=== PATIENT | male | born 1935 | race Caucasian/White ===

== ENCOUNTER 2017-11-14 21:44 | Inpatient (IN) | payer OTHER ==
[~2017-11-14] VITALS: Ht 182.9 cm; Wt 138.3 kg
[2017-11-14 22:07] LABS: URINE BLOOD NEGATIVE (Negative); URINE CLARITY CLEAR; URINE COLOR YELLOW; URINE GLUCOSE-RANDOM NEGATIVE (Negative); URINE KETONES TRACE (Negative); URINE LEUKOCYTES-REFLEX NEGATIVE (Negative); URINE NITRITE-REFLEX NEGATIVE (Negative); URINE PROTEIN 1+ (Negative)
[2017-11-14 22:14] LABS: HEMATOCRIT 38.1 % (42.0-52.0); MCH 32.7 pg (26.0-34.0); MCHC 31.4 g/dL (28.0-37.0); MPV 9.6 fl. (7.2-11.1); NUCLEATED RBCS 0 /100WBC; PLATELET COUNT* 189 thou/uL (150-400); RBC 3.67 mil/uL (4.50-6.00); RDW-CV 17.5 % (10.5-14.5)
[2017-11-14 22:25] LABS: INR 1.5; PROTIME 14.7 Seconds (9.20-11.50)
[2017-11-14 22:25] LABS: ICTOTEST (BILI CONFIRMATORY) Negative (Negative); URINE BILIRUBIN 1+ (Negative)
[2017-11-14 22:32] LABS: CALCIUM 9.3 mg/dL (8.5-10.1); POTASSIUM 5.3 mmol/L (3.5-5.1)
[2017-11-14 22:33] LABS: ALBUMIN 2.7 g/dL (3.4-5.0); MAGNESIUM 1.9 mg/dL (1.8-2.4); TOTAL BILIRUBIN 1.7 mg/dL (<0.1-1.0); TOTAL PROTEIN 6.8 g/dL (6.4-8.2); TROPONIN-I LEVEL 0.57 ng/mL (<0.06)
[2017-11-14 22:36] LABS: BE -1.4 mmol/L (-2 to +3); HCO3 21.3 mmol/L (22.0-26.0); PCO2 30.2 mmHg (35.0-45.0); pH 7.467 (7.340-7.450)
[2017-11-14 22:38] LABS: PO2 256.5 mmHg (75.0-100.0)
--- NOTE | 2017-11-14 23:16 | NUR ---
BACK FROM CAT SCAN.
[2017-11-15] VITALS (20 sets, daily range): BP systolic 77–137; BP diastolic 44–85
--- NOTE | 2017-11-15 00:05 | NUR ---
PT INTUBATED PER DR WELSH, 8 FR. 25 AT THE LIP. VENT SEETINGS 600/14/100% PEEP 5.
--- NOTE | 2017-11-15 00:12 | NUR ---
CENTRAL LINE PLACED BY DR WELSH. RT EJ.
[2017-11-15 00:49] LABS: ABSOLUTE LYMPHOCYTES 0.4 thou/uL (0.8-5.3); ABSOLUTE MONOCYTES 0.7 thou/uL (0.0-1.2); ABSOLUTE NEUTROPHILS 9.9 thou/uL (1.6-8.1)
[2017-11-15 00:50] LABS: ANISOCYTOSIS 1+; PLATELET ESTIMATE ADEQUATE; POLYCHROMASIA 1+
[2017-11-15 01:36] LABS: BE -3.2 mmol/L (-2 to +3); HCO3 21.9 mmol/L (22.0-26.0); PCO2 39.5 mmHg (35.0-45.0); pH 7.362 (7.340-7.450)
[2017-11-15 01:38] LABS: PO2 344.5 mmHg (75.0-100.0)
--- NOTE | 2017-11-15 03:10 | NUR ---
PT ADMITED TO ICU ROOM 5 AT 0100. PT INTUBATED AND SEDATED ON VENTILATOR. PT IN BILATERAL SOFT WRIST RESTRAINTS TO MAINTAIN ET TUBE, CENTRAL LINE, OG TUBE AND MCQUEEN CATHETER. PT SEDATED ON PROPOFOL DIP FOR SEDATION. PT RECIEVING AMIODARONE DRIP FOR TREATMENT OF AFIB/RVR.
[2017-11-15 08:59] LABS: BE -2.9 mmol/L (-2 to +3); PCO2 33.8 mmHg (35.0-45.0); PO2 97.1 mmHg (75.0-100.0); pH 7.411 (7.340-7.450)
[2017-11-15 10:59] LABS: INFLUENZA A ANTIGEN None Detected (None Detect); INFLUENZA B ANTIGEN None Detected (None Detect)
--- NOTE | 2017-11-15 11:49 | EKG ---
[place] [address] ELECTROCARDIOGRAM REPORT Name: DAKSHA MUNIZ Room: [address] ADM IN ..#: [id number] Admission: 11/14/17 Attend Phys: Narcisa Pastrana Discharge: Date of : 34 Report #: [id number] THIS REPORT FOR: //name// [facility] ED Test Date: 2017-11-14 Test Time: 21:52:52 Pat Name: DAKSHA FLAVIO Department: Room: [facility] Gender: M Research And Development Technician: WILVER Cordova : 1935 Requested By: Phyllis Carty Order Number: [id number] MD: Markel Black Measurements Intervals [place] Rate: 167 P: IN: QRS: 67 QRSD: 106 T: 88 QT: 286 QTc: 477 Interpretive Statements Atrial fibrillation with rapid V-rate Anterior infarct, old Nonspecific T abnormalities, lateral leads No previous ECG available for comparison Electronically Signed On 11-15-2017 11:48:56 BRAKE LINING DRILLER by Markel Black [email or web address] <ELECTRONICALLY SIGNED> By: Markel Black MD, [facility] 11/15/17 1148 51 51 Markel Black MD, [facility] /EPI
--- NOTE | 2017-11-15 11:52 | EKG ---
[place] [address] ELECTROCARDIOGRAM REPORT Name: DAKSHA MUNIZ Room: [address] ADM IN [facility].#: [id number] Admission: 11/14/17 Attend Phys: Narcisa Pastrana Discharge: Date of : 34 Report #: [id number] THIS REPORT FOR: //name// [facility] ED Test Date: 2017-11-15 Test Time: 00:47:08 Pat Name: DAKSHA FLAVIO Department: Room: [facility] Gender: M Print Color Operator: UNKNOWN : 1935 Requested By: Phyllis Carty Order Number: [id number] MD: Markel Black Measurements Intervals [place] Rate: 132 P: SD: QRS: 92 QRSD: 105 T: 30 QT: 307 QTc: 455 Interpretive Statements Incomplete analysis due to missing data in precordial lead(s) Atrial fibrillation with rapid V-rate Anterior infarct, old Missing lead(s): V6 Electronically Signed On 11-15-2017 11:52:05 TABLEAU DEVELOPER by Markel Black [email or web address] <ELECTRONICALLY SIGNED> By: Markel Black MD, [facility] 11/15/17 1152 0047 0047 Markel Black MD, [facility] /EPI
--- NOTE | 2017-11-15 15:30 | 2DMMODE ---
[place] [address] 2 D/M-MODE ECHOCARDIOGRAM Name: DAKSHA MUNIZ Room: [address] IN [facility]#: [id number] Admission: 11/14/17 Attend Phys: Pradip Lantigua Discharge: Date of : 33 Date of Service: 11/15/17 1530 Report #: [id number] THIS REPORT FOR: //name// APPROVED REPORT Study performed: 11/15/2017 09:21:01 EXAM: Comprehensive 2D, Doppler, and color-flow Echocardiogram Patient Location: In-Patient Room #: [facility] Status: routine BSA: 2.59 HR: 82 bpm BP: 106/60 mmHg Rhythm: Atrial Fibrillation Other Information Study Quality: Good Indications Atrial Fibrillation Sepsis elevated BNP, Altered mental status, cellulitis 2D Dimensions IVSd: 12.62 (7-11mm) LVOT Diam: 22.61 (18-24mm) LVDd: 64.17 mm PWd: 11.07 (7-11mm) Ascending Ao: 51.03 (22-36mm) LVDs: 51.45 (25-40mm) Aortic Root: 37.10 mm Volumes Left Atrial Volume (Systole) LA ESV Index: 48.80 mL/m2 Aortic Valve AoV Peak Rocky.: 1.71 m/s AO Peak Gr.: 11.71 mmHg LVOT Max P.52 mmHg AO Mean Gr.: 7.03 mmHg LVOT Mean P.36 mmHg LVOT Max V: 1.06 m/s AO V2 VTI: 33.86 cm LVOT Mean V: 0.71 m/s JOHNATHON (VTI): 2.29 cm2 LVOT V1 VTI: 19.29 cm AI [place]: 1.46 m/s2 AI PHT: 659.62 [place] [address] 2 D/M-MODE ECHOCARDIOGRAM Name: DAKSHA MUNIZ Room: [address] IN ..#: [id number] Admission: 11/14/17 Attend Phys: Pradip Lantigua Discharge: Date of : 34 Date of Service: 11/15/17 1530 Report #: [id number] Mitral Valve MV Decel. Time: 149.31 ms MV PHT: 43.30 ms MVA (PHT): 5.08 cm2 TDI Medial E' Rocky.: 0.10 m/s Lateral E' Rocky.: 0.16 m/s Pulmonary Valve PV Peak Rocky.: 0.68 m/s PV Peak Gr.: 1.87 mmHg Tricuspid Valve TR Peak Gr.: 28.92 mmHg RVSP: 33.00 mmHg Left Ventricle Left ventricle is mildly dilated. There is global hypokinesis of the left ventricle. Mild concentric left ventricular hypertrophy. Left ventricular systolic function is severely decreased. LVEF is 25-30%. This study is not technically sufficient to allow evaluation of the LV diastolic function due to atrial fibrillation. Right Ventricle Right ventricle is mildly dilated. Right ventricle is mildly hypokinetic. Atria Left atrium is severely dilated. Right atrium is moderately dilated. Aortic Valve Mild aortic valve sclerosis. Mild aortic regurgitation. There is no aortic valvular stenosis. Mitral Valve The mitral valve is normal in structure. Moderate mitral regurgitation. No evidence of mitral valve stenosis. Tricuspid Valve The tricuspid valve is normal in structure. Moderate tricuspid regurgitation. The RVSP is 30-35 mmHg. Pulmonic Valve The pulmonary valve is normal in structure. [place] [address] 2 D/M-MODE ECHOCARDIOGRAM Name: DAKSHA MUNIZ Room: [address] IN [facility]#: [id number] Admission: 11/14/17 Attend Phys: Pradip Lantigua Discharge: Date of : 33 Date of Service: 11/15/17 1530 Report #: [id number] [place] Aortic root is moderately dilated. IVC is normal in size and collapses with >50% inspiration Pericardium There is no pericardial effusion. Left pleural effusion. <Conclusion> LVEF is 25-30%. Right ventricle is mildly dilated. Left atrium is severely dilated. Right atrium is moderately dilated. Mild aortic valve sclerosis. Mild aortic regurgitation. Moderate mitral regurgitation. <ELECTRONICALLY SIGNED> By: Markel Black MD, FACC 11/15/17 1530 153 153 Markel Black MD, FACC /INF
--- NOTE | 2017-11-15 16:18 | NUR ---
WOUND CARE NOTE: CONSULT RECEIVED FOR CELLULITIS. PATIENT PRESENTS WITH 4+ PITTING EDEMA TO BILATERAL LEGS, REDNESS PRESENT TO LOWER ASPECT OF LEGS. ECCHYMOSIS NOTED TO LEFT KNEE AREA. WARM TO TOUCH. DID NOT OBSERVE ANY BLISTERING. WEEPING WAS NOTED FROM PINPOINT AREA TO RIGHT LEG. UNABLE TO PALPATE PULSES DUE TO THE EDEMA, PATIENT'S RN STATES SHE WAS ABLE TO DOPPLE THEM EARLIER. PATIENT WITH SKIN SLIT TO COCCYX-UNABLE TO MEASURE AT THIS TIME. APPEARED TO BE PARTIAL THICKNESS AND FROM MOISTURE. APPEARS TO HAVE FUNGAL RASH UNDER ABDOMINAL FOLD AND BILATERAL GROIN. RECOMMEND ELEVATE BL LEGS ELEVATE HEELS OFF BED BARRIER OINTMENT BID AND PRN INCONTINENCE TURN Q2 HOURS KEEP OFF WOUND PLACE LOTION TO BILATERAL LEGS, APPLIED OPTIFOAM OR ABD OVER WEEPING AREAS, KERLIX AND MACARIO FROM TOES TO KNEE. RECOMMEND PERFORMING DAILY IF OK WITH PHYSICIANS LIMIT HOB <30 DEGREES IF PATIENT CAN TOLERATE WASH ABDOMINAL FOLDS AND GROIN AREA, WHERE FUNGAL INFECTION PRESENT, WELL WITH SOAP AND WATER THEN DRY WELL. PRIOR TO APPLYING NYSTATIN POWDER.
[2017-11-16] VITALS (17 sets, daily range): BP systolic 18–152; BP diastolic 33–85
[2017-11-16 04:05] LABS: ABSOLUTE LYMPHOCYTES 0.5 thou/uL (0.8-5.3); ABSOLUTE NEUTROPHILS 10.1 thou/uL (1.6-8.1); BASOPHILS 0.2 %; EOSINOPHILS 0.1 %; HEMATOCRIT 32.8 % (42.0-52.0); HEMOGLOBIN 10.6 gm/dL (14.0-18.0); LYMPHOCYTES 4.6 %; MCH 32.8 pg (26.0-34.0); MCHC 32.3 g/dL (28.0-37.0); MCV 101.4 fL (80.0-100.0); MONOCYTES 8.7 %; MPV 10.2 fl. (7.2-11.1); NUCLEATED RBCS 0 /100WBC; PLATELET COUNT* 133 thou/uL (150-400); POLYS 86.4 %; RBC 3.24 mil/uL (4.50-6.00); RDW-CV 17.3 % (10.5-14.5); WBC 11.7 thou/uL (4.0-11.0)
[2017-11-16 04:20] LABS: BE -4.3 mmol/L (-2 to +3); PCO2 33.5 mmHg (35.0-45.0); PO2 100.4 mmHg (75.0-100.0); pH 7.393 (7.340-7.450)
[2017-11-16 04:22] LABS: ANION GAP 9 mmol/L (7-16); BUN 44 mg/dL (7-18); CALCIUM 8.7 mg/dL (8.5-10.1); CHLORIDE 103 mmol/L (98-107); CHOLESTEROL 64 mg/dL (<200); CO2 25 mmol/L (21-32); CREATININE 2.5 mg/dL (0.6-1.3); GLUCOSE 110 mg/dL (70-99); HDL CHOLESTEROL 10 mg/dL (>40); LDL CHOLESTEROL 28 mg/dL (<100); POTASSIUM 4.6 mmol/L (3.5-5.1); SODIUM 137 mmol/L (136-145); TC:HDL 6.4 Ratio (Not establshd); TRIGLYCERIDE 133 mg/dL (<150); VLDL 27 mg/dL (<40)
[2017-11-16 04:45] LABS: SERUM ASSESSMENT CLEAR
[2017-11-16 06:52] LABS: DIRECT BILIRUBIN 0.5 mg/dL (<0.1-0.3); TOTAL BILIRUBIN 0.8 mg/dL (<0.1-1.0); TOTAL PROTEIN 5.4 g/dL (6.4-8.2)
--- NOTE | 2017-11-16 09:45 | NUR ---
RECEIVED PT FROM NIGHT RN. ASSESSMENT CHARTED. AFEBRILE. TTT TODAY. SEDATION VACATION RIGHT NOW. WILL CONTINUE TO MONITOR.
[2017-11-16 10:47] LABS: APTT 32.4 Seconds (25.0-31.3); INR 1.3; PROTIME 12.5 Seconds (9.20-11.50)
--- NOTE | 2017-11-16 10:50 | CON ---
[address] [address] CONSULTATION Name: DAKSHA MUNIZ Room: [address] IN .R.#: [id number] Admission: 11/14/17 Attend Phys: Narcisa Pastrana Discharge: Date of : 34 Report #: [id number] THIS REPORT FOR: //name// CC: Gutierrez Lantigua DATE OF SERVICE: 11/15/2017 INFECTIOUS DISEASE CONSULTATION ATTENDING PHYSICIAN: Dr. Lantigua. REASON FOR CONSULTATION: Sepsis, right lower extremity inflammatory eruption, likely component of skin and soft tissue infection. HISTORY OF PRESENT ILLNESS: Chart reviewed, the patient examined. This is an 81-year-old without significant medical history, who apparently was found by a family member with marked encephalopathy, who had seen him the day prior. It was clear that he was febrile as well. He noted per the family member that he had a raised area on the right thigh from a dog bite previously. He was found to be somewhat hemodynamically unstable. Ultimately, he was intubated. He has been treated in the ICU. He is not on pressor support. He was found to have lactic acidemia as well. He was dosed with vancomycin as well ceftriaxone. ALLERGIES: LISTED TO PENICILLINS AND ERYTHROMYCIN. CURRENT MEDICATIONS: Include pantoprazole, aspirin, acetaminophen, propofol, ipratropium and albuterol inhaler. PAST MEDICAL HISTORY: Glaucoma, hypertension, anxiety, depression and previous herniated disk. SOCIAL HISTORY: Nonsmoker, no ethanol. FAMILY HISTORY: Noncontributory. REVIEW OF SYSTEMS: Unobtainable. PHYSICAL EXAMINATION: GENERAL: He is minimally responsive at this point. He is in supine position. He is intubated via an endotracheal tube and mechanical ventilatory support. He does open his eyes, though it is not clear that he is tracking. He appears somewhat chronically ill in this acute setting. VITAL SIGNS: Temperature 97.8, pulse 71, respirations 13 and blood pressure 105/59. SKIN: [place] [address] CONSULTATION Name: DAKSHA MUNIZ Room: [address]#: [id number] Admission: 11/14/17 Attend Phys: Narcisa Pastrana Discharge: Date of : 34 Report #: [id number] NECK: Supple. LUNGS: Few scattered coarse breath sounds. HEART: Regular. I do not appreciate a murmur. ABDOMEN: Soft. There are no apparent peritoneal signs. No rigidity. GENITOURINARY: Deferred. RECTAL: Deferred. LABORATORY DATA: Ultrasound noted cholelithiasis with possible cholecystitis. Venous Dopplers show no evidence of DVT. Influenza antigen was negative. Chest x-ray notes some bilateral infiltrates. ABG: A pH of 7.411, pCO2 of 33.8 and pO2 of 97.1 on FiO2 of 35%. Blood cultures are sterile thus far. Lactic acid initially was 3.4, followup was 2.5. Troponin of 2.144. Urinalysis unremarkable. Electrolytes: Sodium 135, potassium 5.3, chloride 101, bicarbonate is 26, anion gap of 8, BUN and creatinine 34 and 2.0 and estimated GFR of 32. LFTs: ALT of 83, AST of 213, total bilirubin of 1.7. ASSESSMENT AND PLAN: Febrile illness with parameters that raise a question of sepsis, though he is not hypotensive, did respond to fluids. We will continue empiric antimicrobial therapy. Await culture results. Certainly may well have cholecystitis. Continue efforts to wean off support, although he remains quite tenuous at this point. <ELECTRONICALLY SIGNED> By: Kartik Joy MD 11/16/17 1050 1440 [id number] Joy MD /nt
--- NOTE | 2017-11-16 11:08 | CON ---
[address] [address] CONSULTATION Name: DAKSHA MUNIZ Room: [address] IN M.R.#: [id number] Admission: 11/14/17 Attend Phys: Narcisa Pastrana Discharge: Date of : 34 Report #: [id number] THIS REPORT FOR: //name// CC: Gutierrez Lantigua REQUESTING PHYSICIAN: Pradip Lantigua DO REASON FOR CONSULTATION: Acute respiratory failure, sepsis. DISCUSSION: The patient is an 81-year-old man who was brought to the Emergency Department yesterday evening. He apparently lives alone, recently lost his , was seen in the Emergency Department late yesterday evening due to alterations in his mental status. Apparently, the family had noted a change. He had had some falls, was confused and also combative, was seen in the Emergency Department though was oxygenating adequately, was noted to have marked edema and erythema of his lower extremities. Was concerned about cellulitis. He has had issues with AFib with RVR. He was intubated in the Emergency Department. A central line was also placed. A chest x-ray done as well as imaging studies of his head to rule out an acute process. He was in the Intensive Care Unit. He has been oxygenating adequately. Blood pressure has been somewhat marginal, but he has not required any pressors. He is unable to provide any history. Currently, there is no family here. It appears he is a nonsmoker. He has had a temperature up to 103.1 last evening. He initially was extremely tachycardic. With his atrial fib, his rate is now controlled. Systolic pressure has been running around 100 this morning. He is on the ventilator, but the FiO2 has been decreased to around 40% and his O2 saturations had been good. He has had over 4 liters of fluid in. Just 375 mL of urine overnight. Antibiotics were administered in the ED. He apparently has a history of hypertension, prior herniorrhaphy x 2, some type of heart surgery when he was a child, herniated disk repair, rotator cuff surgery. I do note in 2006, he was hospitalized with cellulitis of his lower extremities at that time as well. Also, history of morbid obesity. ALLERGIES: Listed as ERYTHROMYCIN and PENICILLINS. At this time, it is not clear what home medications he was taking or how compliant he was with the regimen. FAMILY HISTORY: Per old records. Family history is positive for emphysema. REVIEW OF SYSTEMS: Unable to [place] [address] CONSULTATION Name: DAKSHA MUNIZ Narcisa Room: [address]#: [id number] Admission: 11/14/17 Attend Phys: Narcisa Pastrana Discharge: Date of : 34 Report #: [id number] SOCIAL HISTORY: Reportedly he is a recent . Retired from . Nonsmoker. REVIEW OF SYSTEMS: Unable to obtain from the patient given his condition. PHYSICAL EXAMINATION: GENERAL APPEARANCE: Morbidly obese man. He is sedated with IV propofol going, is intubated, has an oral gastric tube in place. He is a very large man. VITAL SIGNS: Heart rate is in the 80s. His systolic pressure is just over 100. SpO2 is 100% on 40% oxygen on the ventilator. HEENT: Head is normocephalic. Sclerae are nonicteric. Mucous membranes do look dry. Currently he is sedated, will do some withdrawal to noxious stimuli. NECK: Very large. He does have a central line in place. Cannot appreciate any definite JVD. HEART: Tones are distant. Irregularly irregular. RESPIRATORY: Lung sounds, however, are quite distant given his large body habitus. No subcutaneous emphysema is noted. ABDOMEN: Very obese. No definite hepatosplenomegaly is appreciated. He does have marked erythema and irritation noted throughout the inguinal areas in his perineal area. EXTREMITIES: Lower extremities are markedly edematous and reddened. The change is consistent with stasis dermatitis. No clubbing. LABORATORY AND X-RAY FINDINGS: Chest x-ray was reviewed. Assumed done late last night. Endotracheal tube in position as well as central line. Does have some mild prominence of markings, all consistent with congestive heart failure. Has some mild cardiomegaly. No pneumothorax. Venous Dopplers are pending. Venous Dopplers done here in the past were negative for DVT. Blood cultures are pending. Arterial blood gases done this morning on the ventilator, pH 7.41, a pCO2 of 34, pO2 of 97, bicarbonate at 21 with a saturation of 97%. His chemistry last night, BUN is 34, creatinine of 2.0, potassium 5.3. AST elevated at 213, lipase 71, total bilirubin 1.7, alkaline phosphatase 97. Albumin 2.7. Lactic acid peaked at 3.4, now down to 2.5. Troponin elevated at 3.52. ProBNP 29,347. Coag studies revealed an INR of 1.5. White blood cell count 11,000, hemoglobin 12.0, hematocrit 38.1, platelets 189,000. MCV is 104. Influenza screen is pending. Prealbumin is 10.5. UA did show trace ketones. IMPRESSION: 1. Acute respiratory failure, was intubated primarily due to his altered mental status and to protect his airway. 2. Acute kidney injury, probably superimposed on chronic kidney disease. 3. Cellulitis. 4. Mild metabolic acidosis. 5. Mild leukocytosis. 6. Morbid obesity. 7. Elevated troponin and BNP. May have had non-ST elevation myocardial [facility] [address] [place] [address] CONSULTATION Name: DAKSHA MUNIZ Room: [address] IN [facility].#: [id number] Admission: 11/14/17 Attend Phys: Narcisa Pastrana Discharge: Date of : 34 Report #: [id number] infarction versus stress. 8. Atrial fibrillation, ventricular response, now controlled. 9. Probably candidiasis. 10. Overall prognosis appears guarded. RECOMMENDATIONS: 1. Maintain ventilatory support at this time. Would like him hemodynamically stable, more alert and hopefully can wean on extubating. 2. Agree with Renal seeing. They are here, they are adjusting his fluids, also going to try Lasix. 2. Will need echocardiogram. Cardiology will also be evaluating. 3. Agree with the wound care seeing him. By history, it appears his legs have been an ongoing issue. 4. I questioned how compliant he is at home. He has lost spouse recently, may not be adequately caring for himself. 5. May need to address code status. <ELECTRONICALLY SIGNED> By: Yann Smith MD 11/16/17 1108 1047 Armando Fuller MD /mason
--- NOTE | 2017-11-16 11:17 | CON ---
[facility] [address] [place] [address] CONSULTATION Name: DAKSHA MUNIZ Room: [address] IN .R.#: [id number] Admission: 11/14/17 Attend Phys: Narcisa Pastrana Discharge: Date of : 34 Report #: [id number] THIS REPORT FOR: //name// CC: Gutierrez Lantigua DATE OF SERVICE: 11/15/2017 HISTORY OF PRESENT ILLNESS: This is an 81-year-old male patient who is unable to provide any history at all. This patient apparently is admitted with altered mental status. No family member is available. I reviewed the record, it looks like the patient lives by himself and he has this recent onset of altered mental status. At one time, he was combative. He appeared to have multiple problems going on with him. REVIEW OF SYSTEMS: Positive for atrial fibrillation with runs of V-tach. He has a pretty significant cellulitis in the lower extremities. He is getting an ultrasound done there. He appeared to be in renal failure. His 14-point review of system was carried out. He has fallen down recently, it is not clear why he has fallen down. This is all the 14-point review of systems I can get. He was having temperature when he came in. He has a history of hypertension. PAST MEDICAL HISTORY: Unavailable, but the best I can tell he did not have a shock in the past. FAMILY HISTORY: Positive for emphysema. SOCIAL HISTORY: He lives alone. PHYSICAL EXAMINATION: Very limited. On my examination, he did not respond at all to the painful stimuli or verbal stimuli. His pupil is asymmetrical, but I suspect that is his baseline. He has no response or reflexes anywhere. He is intubated and is on vent. He has a pretty significant edema in the lower extremities and discoloration. It is not possible to tell about his pulses. His cardiac examination has shown atrial fibrillation. His blood pressure is 106/61, respirations 16, pulse is 82, temperature is 97.9. LABORATORY DATA: White count is normal at 11. We did have a CT scan on admission that did not show any acute changes. IMPRESSION: Very difficult to form in this patient. I need to reach the family and we need some more testing before we can establish the diagnosis. I suspect most likely he has encephalopathy secondary to systemic problem. I cannot rule out the possibility of central nervous system infection. He has numerous medical issues making [place] [address] CONSULTATION Name: DAKSHA MUNIZ Room: [address]#: [id number] Admission: 11/14/17 Attend Phys: Narcisa Pastrana Discharge: Date of : 34 Report #: [id number] RECOMMENDATIONS: 1. We will get an EEG done. 2. We will try to reach the family. 3. He has numerous medical problems and they need to decide how aggressive they want to be. 4. I will reevaluate him tomorrow after the EEG is done and maybe we have to do an MRI on him, which is going to be difficult with his condition. We will try to reach the family and discuss with them. this portion is being admitted at the time of signing this dictation. I was not able to get hold of the patient's son but I talked to the patient's sons significant other and she provided history. This patient was functional total few days ago. He needed help. He is not sure how long his legs or having these problems. Although family indicates that he was functional prior to this illness but from all indication it would appear that he was only marginally functional even that time. I had talked to her about the options and she wanted me to talk to this patient's son and I did that this morning and that note will be dictated. I had a long discussion with her yesterday and another one with her son today Thank you very much for this referral. <ELECTRONICALLY SIGNED> By: Vinayak Resendez MD 11/16/17 1117 1237 57Vinayak Resendez MD /mason
--- NOTE | 2017-11-16 13:52 | EKG ---
[place] [address] ELECTROCARDIOGRAM REPORT Name: DAKSHA MUNIZ Room: [address] ADM IN M.R.#: [id number] Admission: 11/14/17 Attend Phys: Narcisa Pastrana Discharge: Date of : 34 Report #: [id number] THIS REPORT FOR: //name// [facility] Test Date: 2017-11-16 Test Time: 08:11:17 Pat Name: DAKSHA MUNIZ Department: Room: [address] Gender: M Rose Grower: : 1935 Requested By: Markel Black Order Number: [id number] MD: James George Measurements Intervals [place] Rate: 89 P: [place]: QRS: 58 QRSD: 108 T: 93 QT: 402 QTc: 490 Interpretive Statements Atrial fibrillation Borderline low voltage, extremity leads Nonspecific T abnrm, anterolateral leads Borderline prolonged QT interval Compared to ECG 11/15/2017 00:47:08 Myocardial infarct finding no longer present Electronically Signed On 11-16-2017 13:52:06 HANDER IN by James George [email or web address] <ELECTRONICALLY SIGNED> By: James George MD, FAC 11/16/17 1352 0811 08 James George MD, [facility] /EPI
--- NOTE | 2017-11-16 15:02 | NUR ---
WOUND NURSE: PATIENT SEEN R/T PERIPHERAL EDEMA AND RECENT LEAKAGE IN BLE THROUGH THE SKIN. CURRENTLY LEGS AREA ELEVATED ON PILLOWS, NO COMPRESSION OR BANDAGES ARE IN PLACE AND THERE IS NO ACTIVE LEAKAGE NOTED AT THIS TIME. PATIENT IS EDEMATOUS IN ALL EXTREMITIES AND THERE IS CONCERN OVER USE OF COMPRESSION AT THIS TIME. RECOMMENDED CONTINUED ELEVATION OF BLE ON PILLOWS AT 15 DEGREE ANGLE AND HOLD KERLEX AND MACARIO WRAPS WITH DRESSINGS LONG NO ACTIVE DRAINAGE. LEGS ARE ALSO REDDENED AND WARM, BUT NOT HOT.
--- NOTE | 2017-11-16 16:00 | NUR ---
SPOKE WITH SON DAKSHA BY PHONE (CELL [phone]). PT LIVES ALONE, HIS ABOUT 5-6 MONTHS AGO. SON SAID THAT SOMEONE FROM THE FAMILY IS AT THE HOUSE DAILY CHECKING ON HIM, BRINGING HIM GROCERIES OR MEALS, ETC. THEY HAVE A FAMILY FRIEND WHO GOES BY TO HELP WITH COOKING, CLEANING, ETC. FAMILY SETS UP PTS MEDS, THEY TRIED USING A PILL CONTAINER BUT PT HAD TROUBLE OPENING THE CONTAINERS SO NOW THEY SET OUT SEVERAL DAYS OF MEDS IN SMALL TUPPERWARE CONTAINERS. SON SAID PT HAS BEEN TAKING ALL HIS MEDS CORRECTLY. THE FAMILY IS CONCERNED THAT PT MAY NOT BE SHOWERING, WHILE HE IS IN THE HOSPITAL THE [place] IS REDOING HIS SHOWER, PUTTING IN GRAB BARS, ETC SO IT WOULD BE SAFER FOR PT TO SHOWER. PT'S NAME IS ON A WAITING LIST FOR AN INDEP APT AT THE [facility]. PT HAS A SMALL DOG SO THEY ARE HAVING TO WAIT FOR A ROOM ON THE MAIN LEVEL. SON IS NOW WONDERING IF PT WOULD NEED ASSISTED LIVING, DISCUSSED ASSISTED LIVING OPTIONS IN THE AREA, WILL LEAVE A LIST OF FACILITIES IN THE ROOM. BRIEFLY DISCUSSED DISCHARGE OPTIONS INCLUDING HOME WITH HOME HEALTH VS SNF PRIOR TO RETURNING HOME. SON IS OPEN TO OPTIONS. CASE MGT WILL CONTINUE TO FOLLOW.
--- NOTE | 2017-11-16 16:38 | CON ---
[address] [address] CONSULTATION Name: DAKSHA MUNIZ Room: [address] IN .R.#: [id number] Admission: 11/14/17 Attend Phys: Narcisa Pastrana Discharge: Date of : 33 Report #: [id number] THIS REPORT FOR: //name// CC: Gutierrez Lantigua DATE OF SERVICE: 11/15/2017 TYPE OF REPORT: Cardiology consultation. HISTORY OF PRESENT ILLNESS: The patient is an 81-year-old white male who I was asked to see in the hospital today after he was noted to be in atrial fibrillation. The history is obtained from the current chart. There are no family members available. According to the chart, the patient brought to the emergency room yesterday here at [facility] last night by ambulance. Apparently, family members went to check on the patient yesterday evening and he was confused and combative. Apparently lives by himself. He apparently had fallen last week. He was evaluated in the Emergency Room. He was found to be in atrial fibrillation. His oxygen level was low. He has not had significant edema and erythema of the legs. Because of respiratory failure, he was intubated in the Emergency Room and a central line was placed. I was asked to see him for further evaluation and treatment. PAST MEDICAL HISTORY: Has a history of hypertension and previous hernia repair. Apparently, he had a heart surgery as a child. He has had back surgery, shoulder surgery and history of cellulitis. He is morbidly obese. He has a history of glaucoma. ALLERGIES: He has a previous intolerance to PENICILLIN. MEDICATIONS: It is unclear if he is on any medications at home. FAMILY HISTORY: Significant for COPD. SOCIAL HISTORY: He is apparently , apparently is a nonsmoker. REVIEW OF SYSTEMS: Cannot be obtained. PHYSICAL EXAMINATION: GENERAL: Revealed an obese elderly male lying in bed. He is on a ventilator. VITAL SIGNS: His blood pressure 100 systolic and pulse is 80 and irregular. HEENT: He was anicteric. Mucous members are moist. NECK: Veins are difficult to assess due to obesity. CHEST: Revealed clear lung bledsoe bilaterally. CARDIAC: Irregular rhythm. ABDOMEN: [place] [address] CONSULTATION Name: DAKSHA MUNIZ Room: [address] IN [facility]#: [id number] Admission: 11/14/17 Attend Phys: Narcisa Pastrana Discharge: Date of : 34 Report #: [id number] EXTREMITIES: Had pitting edema up to the knee. SKIN: Had erythema up to the knee of both anterior tibial areas. No dorsalis pedis pulse palpated. Skin was cool and dry. NEUROLOGICAL: He would withdraw from pain but not respond to voice RADIOLOGICAL DATA: His ECG on admission last night showed atrial fibrillation, rightward axis and nonspecific ST-T wave changes. His workup, he actually had a previous nuclear stress test here at [facility] in 2013, was ordered by Dr. Gutierrez Murillo and Dr. Renzo Moody. There is no evidence of ischemia. Ejection fraction was normal. X-rays, he had a chest x-ray on admission that showed pulmonary edema. CT scan of the head without contrast showed atrophy, microvascular changes and no acute infarction. Venous duplex scan of the legs showed no evidence of DVT. LABORATORY DATA: His lab work done in the Emergency Room: Sodium 135, BUN 34, creatinine 2.0 and glucose 117. SGOT 213. Bilirubin 1.7. Alkaline phosphatase is 97. SGPT 83. Albumin 2.7. His troponin on admission was 0.57 and today, it is 3.52. BNP 29,347. White blood cell count 11.0, hemoglobin 12.0 and MCV 104. IMPRESSION AND RECOMMENDATIONS: 1. Hze-JY-pqfzyqzhe myocardial infarction. I would not recommend cardiac catheterization at this time. I would consider giving the patient aspirin and heparin. The patient's blood pressure is too low for beta leah. I would recommend an echocardiogram. 2. Pulmonary edema. I would give Lasix and check echocardiogram. 3. Chronic kidney disease. 4. Morbid obesity. 5. Cellulitis. 6. Respiratory failure, the patient intubated. 7. Recent fall. 8. Atrial fibrillation. At this time, I would aim for rate control only. The patient does not appear to be a very good candidate for anticoagulation. <ELECTRONICALLY SIGNED> By: Markel Black MD, FACC 11/16/17 1638 [id number] [id number] Black MD, FACC /nt
[2017-11-16] MEDS ORDERED: XARELTO20 MG PO (19:20)
[2017-11-16] MEDS ORDERED: CELEXA10 MG PO (19:22)
[2017-11-16] MEDS ORDERED: LOPRESSOR25 PO (19:23)
--- NOTE | 2017-11-16 20:00 | NUR ---
ASSUMED CARE OF PATIENT. GOALS: KEEP SEDATION OFF AND MONITOR NEURO STATUS. TURN & ORAL CARE.
[2017-11-17] VITALS (16 sets, daily range): BP systolic 118–177; BP diastolic 45–88
[2017-11-17 05:40] LABS: ALBUMIN 1.9 g/dL (3.4-5.0); CALCIUM 8.6 mg/dL (8.5-10.1); CREATININE 2.3 mg/dL (0.6-1.3); PHOSPHORUS* 5.6 mg/dL (2.5-4.9); POTASSIUM 4.4 mmol/L (3.5-5.1)
--- NOTE | 2017-11-17 08:04 | NUR ---
some progression towards goals. moving all extremities. not following commands but opening eyes.
--- NOTE | 2017-11-17 10:15 | NUR ---
INTERDISICPLINARY ROUNDS: PT REMAINS ON VENT, TO START TF. OFF PRESSORS
--- NOTE | 2017-11-17 10:23 | EKG ---
[place] [address] ELECTROCARDIOGRAM REPORT Name: DAKSHA MUNIZ Room: [address] ADM IN .R.#: [id number] Admission: 11/14/17 Attend Phys: Narcisa Pastrana Discharge: Date of : 34 Report #: [id number] THIS REPORT FOR: //name// [facility] Test Date: 2017-11-17 Test Time: 08:05:13 Pat Name: DAKSHA MUNIZ Department: Room: [address] Gender: M Truck Dock Material Mover: : 1935 Requested By: Markel Black Order Number: [id number] MD: Markel Black Measurements Intervals Carver Rate: 80 P: LA: QRS: 69 QRSD: 111 T: 86 QT: 296 QTc: 342 Interpretive Statements Atrial fibrillation nonspecific t wave changes Ventricular premature complex Borderline low voltage, extremity leads Compared to ECG 11/16/2017 08:11:17 pvc no longer seen Electronically Signed On 11-17-2017 10:23:20 SPECIAL EDUCATION PROFESSIONAL by Markel Black [email or web address] <ELECTRONICALLY SIGNED> By: Markel Black MD, [facility] 11/17/17 1023 08 08 Markel Black MD, [facility] /EPI
--- NOTE | 2017-11-17 19:04 | NUR ---
PT NOT REALLY PROGRESSING TOWARDS GOALS. ASSESSMENTS CHARTED. AFEBRILE. SEDDATION OFF SINCE 0800 YESTERDAY. PT NOT REALLY WAKING UP. FAMILY UPDATED ON FAMILY OF CARE.
[2017-11-18] VITALS (23 sets, daily range): BP systolic 122–178; BP diastolic 53–88
[2017-11-18 03:36] LABS: HEMATOCRIT 34.7 % (42.0-52.0); HEMOGLOBIN 11.6 gm/dL (14.0-18.0); MCHC 33.4 g/dL (28.0-37.0); MCV 98.9 fL (80.0-100.0); MPV 9.7 fl. (7.2-11.1); NUCLEATED RBCS 0 /100WBC; PLATELET COUNT* 160 thou/uL (150-400); RBC 3.51 mil/uL (4.50-6.00); RDW-CV 16.7 % (10.5-14.5); WBC 8.8 thou/uL (4.0-11.0)
--- NOTE | 2017-11-18 03:52 | NUR ---
SPOKE TO BLU, PHARMACIST, REGARDING VANC TROUGH OF 21 YESTERDAY. PER PHARMACY, VANC DOSES TO BE GIVEN ORDERED AT THIS TIME. NEXT TROUGH TO BE DRAWN 11/18/17 @ 5145.
[2017-11-18 04:01] LABS: ALBUMIN 1.8 g/dL (3.4-5.0); CALCIUM 8.1 mg/dL (8.5-10.1); POTASSIUM 4.1 mmol/L (3.5-5.1); TOTAL BILIRUBIN 0.7 mg/dL (<0.1-1.0); TOTAL PROTEIN 5.4 g/dL (6.4-8.2)
[2017-11-18 04:02] LABS: ALBUMIN 1.8 g/dL (3.4-5.0); PHOSPHORUS* 4.9 mg/dL (2.5-4.9); POTASSIUM 4.1 mmol/L (3.5-5.1)
[2017-11-18 04:03] LABS: PREALBUMIN 9.3 mg/dL (18.0-35.7)
--- NOTE | 2017-11-18 06:40 | NUR ---
PT REMAINS STABLE ON VENTILATOR, O2 SAT HAS REMAINED >95%. VSS. PT HAS TOLERATED TUBE FEEDING WITH RESIDUALS NO >10ML, RATE INCREASED TO GOAL OF 40ML/HR. COMPLETE BED BATH GIVEN. YEASTY REDNESS NOTED IN GROIN, BENEATH PANUS, AND BENEATH BOTH BREASTS; NYSTATIN POWDER APPLIED. PT HAS BEEN TURNED Q2HR THROUGHOUT THE SHIFT. NO SEDATION GIVEN SINCE 11/16/17, PT IS RESTLESS IN BED AT TIMES BUT DOES NOT FOLLOW COMMAND.
[2017-11-18 06:45] LABS: ABSOLUTE LYMPHOCYTES 0.4 thou/uL (0.8-5.3); ABSOLUTE MONOCYTES 0.7 thou/uL (0.0-1.2); ABSOLUTE NEUTROPHILS 7.7 thou/uL (1.6-8.1); PLATELET ESTIMATE ADEQUATE
[2017-11-18 06:46] LABS: ANISOCYTOSIS 1+; POIKILOCYTOSIS 1+
--- NOTE | 2017-11-18 07:20 | NUR ---
ASSUMED CARE OF PAIENT AFTER RECEIVING BEDSIDE REPORT. ASSESSMENT COMPLETED, VSS. PATIENT TRACKING SOME WITH EYES AND MOVES LEFT FOOT AND RIGHT ARM TO COMMAND. VERY WEAK MOVEMENTS. LEFT ARM AND RIGHT LEG DO NOT MOVE TO COMMAND BUT RIGHT LEG DOES MOVE WITH NO PURPOSE. PATIENT VERY EDEMATOUS. PATIENT DOES NOT APPEAR TO BE IN ANY ACUTE PAIN. PATIENT WITH LOW GRADE FEVER. FILTERING MACHINE TENDER HELPER IN PLACE, AFIB RATE CONTROLLED NOTED. TOLERATING TUBE FEEDING AT THIS TIME. IV FLUIDS HELD PER PORTFOLIO ADMINISTRATOR BECAUSE OF INCREASED COARSE LUNG SOUNDS. BED ALARM ON. WILL CONTINUE TO MONITOR.
[2017-11-18 09:58] LABS: BE 1.6 mmol/L (-2 to +3); HCO3 25.9 mmol/L (22.0-26.0); PCO2 39.4 mmHg (35.0-45.0); PO2 121.8 mmHg (75.0-100.0); pH 7.435 (7.340-7.450)
--- NOTE | 2017-11-18 17:43 | NUR ---
PATIENT TOLERATED T-TUBE TRIAL TODAY WELL, FOLLOW UP ABG WNL. PATIENT EXTUBATED AND TOLERATED VERY WELL. PATIENT VERY WEAK, PT AND OT EVALUATION ORDERED. PATIENT DENIES PAIN, CONCERNS, OR COMPLAINTS. PATIENT DIURESED PER NEPHROLOGY. PATIENT RESTING COMFORTABLY IN BED. AFEBRILE. VSS. BEDSIDE REPORT TO BE GIVEN TO ONCOMING SHIFT.
--- NOTE | 2017-11-18 21:54 | NUR ---
PT ADMITTED TO ICU AT 2015 FOR SEPSIS, HYPOTENSION. PT'S AT BEDSIDE ASSISTING WITH CARE AT THAT TIME. PT DENIED PAIN OR DISCOMFORT. PT STATED HE FELT DIZZY TODAY AND HAD FALLEN AT HOME. PT HAS TRIPLE LUMEN CENTRAL LINE IN RIGHT GROIN WITH LEVOPHED INFUSING. FLU SWAB AND UA OBTAINED AND SENT TO LAB. CALL LIGHT IN REACH, PT USING APPROPRIATELY.
[2017-11-19] VITALS (12 sets, daily range): BP systolic 144–185; BP diastolic 58–76
[2017-11-19 03:40] LABS: HEMATOCRIT 31.7 % (42.0-52.0); HEMOGLOBIN 10.6 gm/dL (14.0-18.0); MCHC 33.4 g/dL (28.0-37.0); MCV 98.7 fL (80.0-100.0); RBC 3.22 mil/uL (4.50-6.00); RDW-CV 16.6 % (10.5-14.5); WBC 7.1 thou/uL (4.0-11.0)
[2017-11-19 04:02] LABS: ALBUMIN 2.9 g/dL (3.4-5.0); CALCIUM 8.5 mg/dL (8.5-10.1); CREATININE 1.7 mg/dL (0.6-1.3); MAGNESIUM 1.9 mg/dL (1.8-2.4); POTASSIUM 3.7 mmol/L (3.5-5.1); TOTAL PROTEIN 5.9 g/dL (6.4-8.2)
[2017-11-19 11:01] LABS: URINE BILIRUBIN NEGATIVE (Negative); URINE BLOOD 3+ (Negative); URINE CLARITY CLEAR; URINE COLOR YELLOW; URINE GLUCOSE-RANDOM NEGATIVE (Negative); URINE KETONES NEGATIVE (Negative); URINE LEUKOCYTES-REFLEX NEGATIVE (Negative); URINE NITRITE-REFLEX NEGATIVE (Negative); URINE PROTEIN TRACE (Negative); URINE UROBILINOGEN 0.2 E.U./dl (0.2-1.0)
[2017-11-19 11:21] LABS: MUCUS 0-3 Light strn/LPF (None Seen); SQUAMOUS 0-3 Few /LPF (0-3); URINE WBC-REFLEX 0-5 Rare /HPF (0-5)
[2017-11-19 11:22] LABS: CASTS None Seen /LPF (None Seen); CRYSTALS None Seen /LPF (None Seen)
--- NOTE | 2017-11-19 18:00 | NUR ---
PT PASSED NURSING BEDSIDE SWALLOW THIS MORNING AT 0800. ASSESSMENT CHARTED. PT TRANSFERED TO BED 214 VIA NURSING STAFF AT 1755. VSS THROUGHOUT THE DAY. PT TOLERATED REGULAR DIET WITHOUT DIFFICULTY TODAY. PT TOLERATING THIN LIQUIDS WITHOUT DIFFICULTY. MECHANICAL SOFT DIET ADDED PT DOES NOT HAVE HIS DENTURES HERE. NO OTHER COMPLAINTS.
--- NOTE | 2017-11-19 19:25 | NUR ---
PATIENT RESTING IN BED. VITAL SIGNS STABLE. PARTH WAS TRANSPORTED TO [facility] FROM ICU AT 18:00. PLACED ON TELEMTRY MONITOR, AFIB , RATE CONTROLED. HOURLY ROUNDING COMPLETED FOR PATIENT SAFETY.
[2017-11-20] VITALS (8 sets, daily range): BP systolic 158–186; BP diastolic 59–82
[2017-11-20 05:02] LABS: HEMATOCRIT 31.1 % (42.0-52.0); HEMOGLOBIN 10.4 gm/dL (14.0-18.0); MCH 33.1 pg (26.0-34.0); MCHC 33.3 g/dL (28.0-37.0); MCV 99.3 fL (80.0-100.0); MPV 9.5 fl. (7.2-11.1); RBC 3.13 mil/uL (4.50-6.00); RDW-CV 16.4 % (10.5-14.5); WBC 7.3 thou/uL (4.0-11.0)
[2017-11-20 05:15] LABS: CALCIUM 8.7 mg/dL (8.5-10.1); CREATININE 1.4 mg/dL (0.6-1.3); MAGNESIUM 1.8 mg/dL (1.8-2.4); POTASSIUM 3.5 mmol/L (3.5-5.1)
--- NOTE | 2017-11-20 05:34 | NUR ---
PT CARE ASSUMED AFTER REPORT. ASSESSMENT COMPLETE. AFIB ON MONITOR. DENIES PAIN. PT CONFUSED AND HALLUCINATING OVERNIGHT. PT FAMILY BROUGHT IN PT GLASSES AND DENTURES. RIJ FLUSHES WELL X2 PORTS. WHITE PORT FLUSHES SLUGGISH AND DOES NOT DRAW BLOOD. MCQUEEN TO DD WITH TEA COLORED URINE. FECAL BAG IN PLACE. O2 2L NC. 3+ GENERALIZED EDEMA. FALL PRECAUTIONS IN PLACE INCLUDING BED ALARM. CALL LIGHT IN REACH. BED IN LOWEST POSITION. SLOW TO PROGRESS TOWARDS GOALS.
--- NOTE | 2017-11-20 14:50 | NUR ---
Left VM for Pt's son to discuss disposition. Per Pt's nurse, Pt is A&Ox1-2. Waiting call back
--- NOTE | 2017-11-20 18:50 | NUR ---
REPORT RECEIVED FROM Alyce VILLANUEVA RN. PATIENT TRANSFERRED FROM TELEMETRY. PATIENT'S CARDIAC MONITORING RESUMED, TRACING AFIB. IV SALINE LOCKED. PATIENT SETTLED INTO ROOM. REPORT GIVEN TO ONCOMING RN. WILL CONTINUE WITH PLAN OF CARE.
--- NOTE | 2017-11-20 18:54 | NUR ---
PATINET RESTING IN BED. FECAL TUBE DISCONTINUED TODAY PER ORDERS, WELL TOLERATED BY PATIENT. VITAL SIGNS STABLE. REPORT CALLED TO MED SURG UNIT. PATINET TO BE MED/TELE. PATINET TAKEN VIA BED TO 3RD FLOOR BY STAFF.
[2017-11-21 04:00] VITALS: BP 161/63
--- NOTE | 2017-11-21 04:54 | NUR ---
THIS NURSE ASSUMES CARE OF PT 11/20/17 AT 1930, PT IS ALERT ORIENTED TO SELF, PLACE, AND SITUATION, PTS SON VISITS AT BEDSIDE, PT DENIES PAIN, CONTINUES ON IV ABX WITH NO ADVERSE REACTION, PT HAS 4+ PITTING EDEMA BLE, ANKLES AND FEET, PT HAS 3-4 + GENERALIZED EDEMA ELSEWHERE, LEFT UPPER EXTREMITY CONTINUES EDAMATOUS WITH BRUISING, PT RECEIVES BED BATH THIS SHIFT, RESTS QUIETLY IN BED WITH TURNING EVERY 2 HOURS THROUGHOUT THE NIGHT, PT VOICES NO COMPLAINS/CONCERNS THIS SHIFT, PTS SON DOES MENTION THAT HE WOULD LIKE TO SPEAK WITH ID PHYSICIAN VIA TELEPHONE TODAY, THIS NURSE TO LEAVE NOTE FOR PHYSICIAN AND NOTIFY DAYSHIFT NURSE
[2017-11-21 04:57] LABS: ABSOLUTE EOSINOPHILS 0.1 thou/uL (0.0-0.7); ABSOLUTE LYMPHOCYTES 0.5 thou/uL (0.8-5.3); ABSOLUTE NEUTROPHILS 5.7 thou/uL (1.6-8.1); ALBUMIN 2.9 g/dL (3.4-5.0); BASOPHILS 0.2 %; CALCIUM 8.4 mg/dL (8.5-10.1); CREATININE 1.3 mg/dL (0.6-1.3); EOSINOPHILS 0.9 %; HEMATOCRIT 31.4 % (42.0-52.0); HEMOGLOBIN 10.4 gm/dL (14.0-18.0); LYMPHOCYTES 6.5 %; MCH 32.8 pg (26.0-34.0); MCHC 33.2 g/dL (28.0-37.0); MCV 98.8 fL (80.0-100.0); MONOCYTES 14.3 %; MPV 9.3 fl. (7.2-11.1); NUCLEATED RBCS 0 /100WBC; PLATELET COUNT* 142 thou/uL (150-400); POLYS 78.1 %; POTASSIUM 3.2 mmol/L (3.5-5.1); RBC 3.17 mil/uL (4.50-6.00); RDW-CV 16.4 % (10.5-14.5); TOTAL BILIRUBIN 1.5 mg/dL (<0.1-1.0); TOTAL PROTEIN 5.6 g/dL (6.4-8.2); WBC 7.3 thou/uL (4.0-11.0)
[2017-11-21 09:22] VITALS: BP 157/64
--- NOTE | 2017-11-21 14:33 | NUR ---
CONTINUE TO FOLLOW, MET WITH PT. HE IS STILL CONFUSED. CALL PLACED TO SON/DAKSHA [phone]. DISCUSSED DC PLANNING AND SNF. HE IS AWARE PT WILL NEED SNF, WANTS TO TALK WITH PT AND FAMILY BUT IS WILLING TO CONSIDER SOME PLACES. DISCUSSED OPTIONS, CHOSE [facility], [facility] OR [facility]. CALLED AND FAXED REFERRAL TO ALL 3 FACILITIES. WILL FOLLOW
[2017-11-21 14:53] VITALS: BP 162/79
--- NOTE | 2017-11-21 15:36 | NUR ---
SW received call from Neris at [facility] accepting pt for SNF. SW received call from Brandy with [facility] who explained that at this point with pt needing assist x 3 at times, they were not able to accept pt, but would reconsider if updates sent showing any pt improvements in functioning. SW called [facility] and spoke with Tanya who is pending review of referral. SW to continue to follow to assist with finalizing safe dc plan.
[2017-11-21 19:26] VITALS: BP 151/66
--- NOTE | 2017-11-21 19:40 | NUR ---
PATIENT HAS BEEN A/O TO PERSON AND PLACE FOR MOST OF SHIFT, CONFUSED AT TIMES, REORIENTS EASILY. PATIENT HAS DENIED PAIN. PATIENT CONTINUES WITH RIGHT IJ, SALINE LOCKED. IV ANTIBIOTICS ADJUSTED BY ID THIS SHIFT. PATIENT REPOSITIONED IN BED. ATTEMPTED TO WORK WITH PHYSICAL AND OCCUPATIONAL THERAPY THIS SHIFT, DANGLED ON SIDE OF BED. PATIENT'S LEFT ARM SWOLLEN, PILLOWS PLACED TO HELP REDUCE EDEMA. PATIENT'S LEGS ELEVATED THIS SHIFT, REFUSED TO ALLOW NURSE TO PLACE COMPRESSION ON LEGS. PATIENT ENCOURAGED TO EAT AND DRINK. PATIENT'S MCQUEEN REMOVED THIS SHIFT, GIVEN URINAL. POTASSIUM BEING REPLACED PER ELECTROLYTE PROTOCOL. HOURLY ROUNDING COMPLETED. FALL PRECAUTIONS IN PLACE. CALL LIGHT WITHIN REACH. WILL CONTINUE WITH PLAN OF CARE.
[2017-11-22 00:31] VITALS: BP 187/78
[2017-11-22 04:04] VITALS: BP 167/80
[2017-11-22 04:07] LABS: HEMOGLOBIN 11.1 gm/dL (14.0-18.0); MCH 32.7 pg (26.0-34.0); MCHC 33.6 g/dL (28.0-37.0); MCV 97.3 fL (80.0-100.0); MPV 9.9 fl. (7.2-11.1); NUCLEATED RBCS 0 /100WBC; PLATELET COUNT* 165 thou/uL (150-400); RBC 3.39 mil/uL (4.50-6.00); RDW-CV 16.4 % (10.5-14.5); WBC 8.1 thou/uL (4.0-11.0)
[2017-11-22 04:18] LABS: ALBUMIN 2.7 g/dL (3.4-5.0); CALCIUM 8.2 mg/dL (8.5-10.1); CREATININE 1.2 mg/dL (0.6-1.3); POTASSIUM 3.3 mmol/L (3.5-5.1); TOTAL BILIRUBIN 1.6 mg/dL (<0.1-1.0); TOTAL PROTEIN 5.6 g/dL (6.4-8.2)
--- NOTE | 2017-11-22 06:02 | NUR ---
ASSESSMENT COMPLETE. PT SLEPT MOST OF THE NIGHT WITHOUT ANY CONCERNS. PT IS ON ROOM AIR WITH ADEQUATE SATS. PT DENIES PAIN AND N/V. PT INCONT DURING THE NIGHT, TUNRED Q2 FOR SKIN INTEGRITY. PT ARMS AND LEGS ELEVATED TO HELP WITH EDEMA. PT HAS TRIPLE LUMEN RIGHT IJ, SALINE LOCKED. PT K+ LOW AT 3.3, PT HAS HARD TIME TAKING PILLS SO REPLACING IV AT THIS TIME. DRESSING TO BLE CHANGED DURING THE NIGHT DUE TO DRAINAGE. SEE ASSESSMENT AND VITALS FOR OTHER DETAILS. BED ALARM ON, CALL LIGHT WITHIN REACH. WILL CONTINUE TO MONITOR
[2017-11-22 06:07] LABS: ABSOLUTE BASOPHILS 0.1 thou/uL (0.0-0.2); ABSOLUTE EOSINOPHILS 0.2 thou/uL (0.0-0.7); ABSOLUTE LYMPHOCYTES 0.5 thou/uL (0.8-5.3); ABSOLUTE MONOCYTES 0.9 thou/uL (0.0-1.2); ABSOLUTE NEUTROPHILS 6.5 thou/uL (1.6-8.1); ANISOCYTOSIS 1+; PLATELET ESTIMATE ADEQUATE
[2017-11-22 06:08] LABS: POLYCHROMASIA 1+
[2017-11-22 07:43] VITALS: BP 160/73
[2017-11-22 12:37] VITALS: BP 160/76
--- NOTE | 2017-11-22 14:19 | NUR ---
CONTINUE TO FOLLOW, DISCUSSED WITH DR BAXTER. HE STATED PT MAY BE READY IN 1-2 DAYS FOR SNF PENDING ID RECOMMENDATION. SPOKE WITH PT'S SON/DAKSHA OVER THE PHONE. EXPLAINED THAT PT HAD BEEN ACCEPTED [facility], HE STATED THAT IS THEIR FIRST CHOICE. CALL TO [facility], SHE WILL INITIATE INSURANCE AUTH TODAY. WILL FOLLOW
[2017-11-22 16:19] VITALS: BP 182/84
--- NOTE | 2017-11-22 19:59 | NUR ---
PATIENT HAS BEEN A/O X PERSON AND PLACE, AND CONFUSED INTERMITTENTLY THIS SHIFT. HAS DENIED PAIN, ON ROOM AIR. CONTINUES ON WAREHOUSE PRICING AND INVENTORY CLERK TRACING AFIB. PATIENT'S POTASSIUM REPLACE THROUGH ELECTROYTE PROTOOCL THIS SHIFT. RIGHT TRIPLE LUMEN IJ SALINE LOCKED, DRESSING CHANGED THIS SHIFT. PATIENT INCONTINENT OF URINE AND BOWEL THIS SHIFT. PATIENT REPOSITIONED THIS SHIFT AND HEELS ELEVATED. PATIENT DID PARTICIPATE WITH PHYSICAL THERAPY, DID BED EXERCISES THIS SHIFT BUT DIDN'T GET UP TO CHAIR. PATIENT HAD MRI OF BRAIN COMPLETED. PATIENT DID BETTER WITH MEALS THIS SHIFT, ATE 100% OF DINNER THIS EVENING. PATIENT'S DAUGHTER IN LAW IN TO VISIT THIS EVENING. UPDATE PROVIDED. PATIENT DID USE URINAL THIS EVENING WITH STAFF HOLDING URINAL. PATIENT'S EDEMA SLOWLY IMPROVING. FALL PRECAUTIONS IN PLACE. HOURLY ROUNDING COMPLETED. CALL LIGHT WITHIN REACH. WILL CONTINUE WITH PLAN OF CARE.
[2017-11-22 20:10] VITALS: BP 173/69
[2017-11-23] VITALS: BP 178/77
[2017-11-23 04:16] VITALS: BP 179/82
[2017-11-23 04:40] LABS: ABSOLUTE EOSINOPHILS 0.2 thou/uL (0.0-0.7); ABSOLUTE LYMPHOCYTES 0.8 thou/uL (0.8-5.3); ABSOLUTE NEUTROPHILS 5.7 thou/uL (1.6-8.1); BASOPHILS 0.3 %; EOSINOPHILS 2.6 %; HEMATOCRIT 36.1 % (42.0-52.0); LYMPHOCYTES 10.3 %; MCH 31.9 pg (26.0-34.0); MCHC 33.1 g/dL (28.0-37.0); MCV 96.3 fL (80.0-100.0); MONOCYTES 12.9 %; MPV 9.5 fl. (7.2-11.1); NUCLEATED RBCS 0 /100WBC; PLATELET COUNT* 210 thou/uL (150-400); POLYS 73.9 %; RBC 3.75 mil/uL (4.50-6.00); RDW-CV 16.1 % (10.5-14.5); WBC 7.7 thou/uL (4.0-11.0)
[2017-11-23 04:51] LABS: PREALBUMIN 11.2 mg/dL (18.0-35.7)
[2017-11-23 04:53] LABS: ALBUMIN 2.6 g/dL (3.4-5.0); CALCIUM 8.3 mg/dL (8.5-10.1); CREATININE 1.2 mg/dL (0.6-1.3); POTASSIUM 3.4 mmol/L (3.5-5.1); TOTAL BILIRUBIN 1.4 mg/dL (<0.1-1.0); TOTAL PROTEIN 5.6 g/dL (6.4-8.2)
--- NOTE | 2017-11-23 05:13 | NUR ---
PT AWAKE ALL NIGHT, CONFUSED, BECOMING AGITATED THAT STAFF WOULD NOT GET PT OOB-EDUCATED ABOUT FALLS AND PT DID NOT FEEL SAFE GETTINB PT OOB DURING THE DAY, BUT WILL RETURN TO WORK WITH PT TODAY. RTLIJ, SL, PT PULLED OFF DRESSING- REDRESSED BY STAFF. INCONTINENT URINE, AD CARE GIVEN, PT TURNED AND REPOSITIONED HE WOULD ALLOW FOR SKIN CARE AND COMFORT. BLE EDEMA, DRSG INTACT. TELE AFIB-PT PULLED OFF LEADS SEVERAL TIMES, FOUND WITH GOWN AND COVERS OFF AND ON THE FLOOR FREQUENTLY THIS SHIFT. AM LABS DRAWN. ABX GIVEN ORDERED. BED ALARM ON FOR SAFETY. CALL LITE IN EASY REACH.
[2017-11-23 08:30] VITALS: BP 183/82
[2017-11-23 15:55] VITALS: BP 144/50
--- NOTE | 2017-11-23 16:04 | NUR ---
PATIENT ALERT AND ORIENTED TO NAME AND BIRTHDATE ONLY THIS SHIFT. CENTRAL LINE DC'D THIS SHIFT PER DR. HA ORDER. NO IV REPLACEMENT, OK TO LEAVE OUT PER DR. BAXTER. PATIENT WORKED WITH PT THIS AM, SAT ON EGDE OF BED AND WALKED TO DOORWAY. MRI OF SPINE THIS AFTERNOON, DR. BAXTER SENT MESSAGE REGARDING RESULTS THROUGH YOU CALL MD. INCONTINENT OF LARGE AMOUNTS OF URINE, INCONTINENT OF SMALL BM. DRESSINGS TO MADDY LE'S CHANGED THIS MORNING PER PROTOCOL. LEGS REMAIN EDEMATOUS. POTASSIUM REPLACED THIS AM FOR VALUE OF 3.4, REDRAW THIS EVENING. BED ALARM REMAINS ON FOR PATIENT SAFETY.
--- NOTE | 2017-11-23 16:04 | NUR ---
ADITYA called and discussed pt safe dc planning with pt son Ba (). SW explained that [facility] accepted pt for SNF today and pt son was not happy that the possibility of dc was being considered. ADITYA explained that SW providing update and trying to help plan ahead for pt dc whenever it does happen and then pt son discussed situation with Dr Calle and decision was made for pt to receive MRI of spine and pt dc to possibly be tomorrow. ADITYA called and spoke with admissions at [facility] and they will still be able to accept pt tomorrow. ADITYA called pt son Ba and was going to update and prepare for pt dc tomorrow however pt son Ba was unable to talk at the moment due to his work and requested SW call back in the morning.
[2017-11-23 19:21] VITALS: BP 152/67
[2017-11-24 00:02] VITALS: BP 161/72
[2017-11-24 04:00] VITALS: BP 170/82
[2017-11-24 04:47] LABS: ABSOLUTE EOSINOPHILS 0.2 thou/uL (0.0-0.7); ABSOLUTE LYMPHOCYTES 0.9 thou/uL (0.8-5.3); ABSOLUTE MONOCYTES 0.9 thou/uL (0.0-1.2); ABSOLUTE NEUTROPHILS 5.7 thou/uL (1.6-8.1); BASOPHILS 0.2 %; EOSINOPHILS 2.1 %; HEMATOCRIT 34.8 % (42.0-52.0); HEMOGLOBIN 11.6 gm/dL (14.0-18.0); LYMPHOCYTES 12.1 %; MCH 32.4 pg (26.0-34.0); MCHC 33.3 g/dL (28.0-37.0); MCV 97.4 fL (80.0-100.0); MONOCYTES 12.1 %; MPV 9.5 fl. (7.2-11.1); NUCLEATED RBCS 0 /100WBC; PLATELET COUNT* 216 thou/uL (150-400); POLYS 73.5 %; RBC 3.57 mil/uL (4.50-6.00); RDW-CV 16.3 % (10.5-14.5); WBC 7.8 thou/uL (4.0-11.0)
[2017-11-24 05:10] LABS: ALBUMIN 2.6 g/dL (3.4-5.0); CALCIUM 8.1 mg/dL (8.5-10.1); CREATININE 1.1 mg/dL (0.6-1.3); POTASSIUM 3.6 mmol/L (3.5-5.1); TOTAL BILIRUBIN 1.2 mg/dL (<0.1-1.0); TOTAL PROTEIN 5.5 g/dL (6.4-8.2)
--- NOTE | 2017-11-24 06:02 | NUR ---
ASSESSMENT COMPLETE. PT DID NOT SLEEP DURING THE NIGHT, PRN MELATONIN GIVEN. PT VERY CONFUSED AND FORGETFUL. PT INCONT DURING THE NIGHT. TURNED Q2 FOR SKIN INTEGRITY. PT IS ON ROOM AIR WITH ADEQAUTE SATS. SEE ASSESSMENT AND VITALS FOR OTHER DETAILS. CALL LIGHT WITHIN REACH, BED ALARM ON. WILL CONTINUE TO MONITOR
[2017-11-24 08:23] VITALS: BP 131/51
[2017-11-24 11:20] VITALS: BP 164/59
--- NOTE | 2017-11-24 11:23 | NUR ---
ADITYA followed up with pt family, son Ba and soon to be dtr in law Juliana. DC planning for pt to be able to transition to SNF today. ADITYA called [facility] and transportation scheduled for 15:00. SW to fax final orders and med list.
[2017-11-24 11:48] VITALS: BP 167/67
[2017-11-24 13:56] VITALS: BP 164/59
[2017-11-24] MEDS ORDERED: BAYER CHEWABLE81 MG PO (14:06)
[2017-11-24] MEDS ORDERED: BUMEX PO (14:15)
[2017-11-24] MEDS ORDERED: CARVEDILOL3.125 MG PO (14:19)
[2017-11-24] MEDS ORDERED: COLACE100 MG PO (14:21)
[2017-11-24] MEDS ORDERED: DUONEB 2.5-0.5 M3 ML INH (14:23)
[2017-11-24] MEDS ORDERED: MIRALAX17 GM PO (14:29)
[2017-11-24] MEDS ORDERED: NYSTATIN 100,0015 G1 TOP (14:31)
[2017-11-24] MEDS ORDERED: LISINOPRIL5 MG PO (14:32)
[2017-11-24] MEDS ORDERED: PROTONIX40 M1 PO (14:34)
[2017-11-24] MEDS ORDERED: XARELTO20 MG PO (14:36)
--- NOTE | 2017-11-24 15:35 | NUR ---
REPORT RECEIVED. PATIENT ALERT TO SELF AND SITUATION, DENIES PAIN. DEPENDENT ON STAFF FOR BED MOBILITY, TRANSFERS, ALL ADL. INCONTINENT OF BOWEL AND BLADDER, DOES WEAR BRIEFS. JONATHAN DIET AND MEDS, [id number] WITH CARE, DISCHARGE ORDERS RECEIVED. NO IV ACCESS, PATIENT TO TRANSFER TO [facility] FOR SKILLED SERVICES. PHOTO OF SACRUM AND LLE TAKEN, IN CHART. REPORT GIVEN TO "LUKSAZ SCANLON AT [facility]. AD CARE GIVEN, BRIEF APPLIED, PATIENT DRESSED, TRANSPORTED VIA WHEELCHAIR AND FACILITY TRANSPORT PROVIDER IN STABLE CONDITION.
--- NOTE | 2017-12-01 10:39 | EEG ---
[address] [address] EEG STUDY REPORT Name: DAKSHA MUNIZ Room: [address] IN M.R.#: [id number] Admission: 11/14/17 Attend Phys: Narcisa Pastrana Discharge: 11/24/17 Date of : 34 Report #: [id number] THIS REPORT FOR: //name// CC: Gutierrez Lantigua DATE OF SERVICE: 11/15/2017 This patient is being evaluated for altered mental status. EEG was done by placing the electrodes by standard 10/20 system of electrode placement. Both referential and sequential montages were used for recording. Background activity in this patient's EEG is about 6-7 Hz and 10 microvolts. It is a very low voltage activity. Photic stimulation was unremarkable. Throughout the record, no active epileptiform activity was noticed. IMPRESSION: This is an abnormal record, which is consistent with encephalopathy. However, finding is nonspecific and can occur in multiple etiologies like dementia, effect of psychotropic medication, etc. Clinical correlation is recommended. <ELECTRONICALLY SIGNED> By: Vinayak Resendez MD 12/01/17 1039 [id number] Resendez MD /nt
--- NOTE | 2017-12-15 09:46 | CON ---
[address] [address] CONSULTATION Name: DAKSHA MUNIZ Room: [address] IN .R.#: [id number] Admission: 11/14/17 Attend Phys: Narcisa Pastrana Discharge: 11/24/17 Date of : 33 Report #: [id number] THIS REPORT FOR: //name// CC: Gutierrez Lantigua DATE OF SERVICE: 11/15/2017 REQUESTING PHYSICIAN: Shai Calle MD. REASON FOR CONSULTATION: Acute kidney injury. HISTORY OF PRESENT ILLNESS: The patient is an 81-year-old gentleman with medical history significant for hypertension, depression, and obesity, presents to the Emergency Room with altered mental status. Actually, EMS brought him here. He was comatose and his mental status was changed, so that is why he was brought to the Emergency Room. In the Emergency Room, he was diagnosed with sepsis, cellulitis, and acute kidney injury. I do not know what baseline is his creatinine, but creatinine in the Emergency Room was checked and was 2.0. He also was hypotensive with a blood pressure of 77/45. His heart rate was 82. He was in atrial fibrillation. Temperature initially was 39.5. His white count was 11,000 with left shift, 72% neutrophils and 18% bands. PAST MEDICAL HISTORY: As I mentioned earlier. SOCIAL HISTORY: No current tobacco or alcohol abuse. MEDICATIONS PRIOR TO ADMISSION: Unknown. REVIEW OF SYSTEMS: The patient is intubated now and sedated and he presented with altered mental status. FAMILY HISTORY: Noncontributory. PHYSICAL EXAMINATION: GENERAL: He is in the Intensive Care Unit, intubated. VITAL SIGNS: His blood pressure now is 106/61, heart rate is 82 and irregular, and his temperature now is 36.6. HEENT: Pupils are round. NECK: Fatty. LUNGS: Decreased air movement. CARDIOVASCULAR: Irregular rate. ABDOMEN: Obese. LOWER EXTREMITIES: There was significant 4+ edema and erythema from knee [place] [address] CONSULTATION Name: DAKSHA MUNIZ Room: [address]#: [id number] Admission: 11/14/17 Attend Phys: Narcisa Pastrana Discharge: 11/24/17 Date of : 34 Report #: [id number] LABORATORY REPORT: As I mentioned earlier. ASSESSMENT AND PLAN: 1. An 81-year-old gentleman admitted with septic shock most likely due to his cellulitis. His urine output is decreased. He has had mild hyperkalemia. He was given antibiotics. His blood pressure is better now. I am planning to give him 1 dose of Lasix to see extent of his acute tubular necrosis. He has been already volume repleted and if he responds to Lasix that he feels better prognostic ideas, if he remains anuric that there will be point towards high probability that he will require dialysis during this admission. Continue with NS at 100 and continue with antibiotics per primary. 2. Bilateral cellulitis. 3. History of hypertension. 4. Morbid obesity. Thank you very much for asking my opinion on this patient's acute kidney injury. Discussed this case with ICU nurse. <ELECTRONICALLY SIGNED> By: Tyrell Vann MD 12/15/17 0946 [id number] Vann MD /nt
== END 2017-11-24 15:11 | DRG 871 ==
LOC: M.ERS 21:44 → M.TBA-ER 23:11 → M.ICU 23:11 → M.2W 11-19 18:04 → M.3W 11-20 18:50
PROVIDERS: Emergency Medicine; Internal Medicine; Internal Medicine Nephrology; Internal Medicine Pulmonary Disease; Psychiatry & Neurology Neuromuscular Medicine; Surgery; ADMIT Internal Medicine
PROC: 05HM33Z Insertion of Infusion Device into Right Internal Jugular Vein, Percutaneous Approach (ICD-10-PCS; principal; 2017-11-14)
PROC: 0BH17EZ Insertion of Endotracheal Airway into Trachea, Via Natural or Artificial Opening (ICD-10-PCS; principal; 2017-11-14)
PROC: B24BZZ4 Ultrasonography of Heart with Aorta, Transesophageal (ICD-10-PCS; 2017-11-15)
PROC: 5A1945Z Respiratory Ventilation, 24-96 Consecutive Hours (ICD-10-PCS; 2017-11-15)
DX: A41.9 Sepsis, unspecified organism (principal); J96.01 Acute respiratory failure with hypoxia; N17.0 Acute kidney failure with tubular necrosis; G93.40 Encephalopathy, unspecified; I21.4 Non-ST elevation (NSTEMI) myocardial infarction; R65.21 Severe sepsis with septic shock; I50.21 Acute systolic (congestive) heart failure; J69.0 Pneumonitis due to inhalation of food and vomit; Z68.41 Body mass index [BMI] 40.0-44.9, adult; E87.2 Acidosis; L03.116 Cellulitis of left lower limb; L03.115 Cellulitis of right lower limb; I13.0 Hypertensive heart and chronic kidney disease with heart failure and stage 1 through stage 4 chronic kidney disease, or unspecified chronic kidney disease; I42.9 Cardiomyopathy, unspecified; M19.90 Unspecified osteoarthritis, unspecified site; H40.9 Unspecified glaucoma; E88.09 Other disorders of plasma-protein metabolism, not elsewhere classified; I34.0 Nonrheumatic mitral (valve) insufficiency; N18.3 Chronic kidney disease, stage 3 (moderate); R62.7 Adult failure to thrive; F41.9 Anxiety disorder, unspecified; I48.91 Unspecified atrial fibrillation; F32.9 Major depressive disorder, single episode, unspecified; E66.01 Morbid (severe) obesity due to excess calories; E87.5 Hyperkalemia; Z79.01 Long term (current) use of anticoagulants; Z79.82 Long term (current) use of aspirin; Z79.899 Other long term (current) drug therapy; Z88.0 Allergy status to penicillin; Z88.1 Allergy status to other antibiotic agents; Z83.6 Family history of other diseases of the respiratory system